=== PATIENT | male | born 1965 | race Caucasian/White ===

== ENCOUNTER 2018-10-06 07:56 | Emergency (ER) | payer OTHER ==
[~2018-10-06] VITALS: Ht 203.2 cm; Wt 113.4 kg
[~2018-10-06 07:56] MED LIST: ALBU90OI INH; AMOCLA875 PO; AZIT250 PO; CODGUAEL PO; RXCODGUASY PO; RXOXYACE PO; SUDAFED PO
[2018-10-06] MEDS ORDERED: LOSARTAN POTASS50 MG PO (08:15)
[2018-10-06 10:07] LABS: Source, Urine Clean Catch
[2018-10-06] MEDS ORDERED: Mobic7.5 MG PO (10:42)
[2018-10-06 10:44] LABS: Appearance, Urine Clear (Clear); Bilirubin, Urine Neg (Neg); Blood, Urine Neg (Neg); Color, Urine Yellow (P-Yellow); Glucose Qualitative, Urine 3+ (Neg); Ketones, Urine Neg (Neg); Leukocyte Esterase, Urine 1+ (Neg); Nitrite, Urine Neg (Neg); Protein, Urine 1+ (Neg); Urobilinogen, Urine NORM (Normal)
[2018-10-06 11:08] LABS: Red Blood Cells, Urine 0-2 /hpf (0-2); White Blood Cells, Urine 0-2 /hpf (0-5)
[2018-10-06 11:09] LABS: Bacteria Not Seen /hpf; Squamous Epithelial Cells Not Seen /hpf (Few)
[2018-10-06 11:10] LABS: Calcium Oxalate Crystals Rare /hpf
== END 2018-10-06 10:50 | disposition home or self-care (01) ==
LOC: ER 07:56
PROVIDERS: Physician Assistant
DX: N50.82 Scrotal pain (principal); I48.91 Unspecified atrial fibrillation; Z98.52 Vasectomy status; I10 Essential (primary) hypertension; Z79.899 Other long term (current) drug therapy
CPT/HCPCS: 76870; 81001; 87086; 99284-25

== ENCOUNTER 2023-01-20 14:32 | Emergency (ER) | payer OTHER ==
[~2023-01-20] VITALS: Ht 177.8 cm; Wt 113.4 kg
[~2023-01-20 14:32] MED LIST changes: +LOSARTAN POTASS50 MG PO; +Mobic7.5 MG PO
[2023-01-20 14:45] VITALS: BP 155/96
== END 2023-01-20 15:55 | disposition home or self-care (01) ==
LOC: ER 14:32
DX: S09.90XA Unspecified injury of head, initial encounter (principal); V89.2XXA Person injured in unspecified motor-vehicle accident, traffic, initial encounter; I48.91 Unspecified atrial fibrillation; Z79.82 Long term (current) use of aspirin; Z79.899 Other long term (current) drug therapy
CPT/HCPCS: 70450; 72125; 99284-25